=== PATIENT | male | born 1955 | race American Indian/Alaskan Native ===

== ENCOUNTER 2018-04-13 06:55 | Day surgery (SDC) | payer BC ==
[2018-04-13] MEDS ORDERED: Propofol 10 mg/ml Inj (20 ML) ONE ×2 (07:59→08:24)
[2018-04-13] MEDS ORDERED: Sodium Chloride 0.9% 1,000 ML IV SCH (08:45)
[2018-04-13 10:02] VITALS: BP 128/89; PULSE 60; RESP 16; TEMP 97.7; O2SAT 98
== END 2018-04-13 09:50 | disposition home or self-care (01) ==
LOC: ENDO 06:55
PROVIDERS: ATTEND Internal Medicine Gastroenterology
DX: Z12.11 Encounter for screening for malignant neoplasm of colon (principal); D12.2 Benign neoplasm of ascending colon; K63.5 Polyp of colon; K64.8 Other hemorrhoids; K64.4 Residual hemorrhoidal skin tags
CPT/HCPCS: 45380; 45385; 88305; J2704; J3010; J7030; J7040

== ENCOUNTER 2018-08-02 13:35 | Outpatient (CLI) | payer BC | END 2018-08-02 13:36 | disposition home or self-care (01) | LOC: CARDIO 13:35 ==